=== PATIENT | female | born 1950 | race Caucasian/White ===

== ENCOUNTER 2025-02-11 13:45 | Inpatient (IN) ==
[2025-02-11] MEDS: MoRPHine SULFATE 4 MG/ML 1 ML CARP\\VIAL IV STA (14:47)
[2025-02-11] MEDS: ONDANSETRON INJ 2 MG/ML 2 ML VIAL IV STA (14:47)
--- NOTE | 2025-02-11 14:52 | XRay Report ---
Exam: Single view pelvis 2 view right hip. History: Pain post fall. Comparison:None. Findings: Slight atypical appearance of the left femoral neck. No discrete fracture. This may be positional. Mild degenerative changes lumbar spine. Transitional lumbosacral junction on the left. Absence normal cortical continuity of the subcapital right femoral neck most consistent with impaction type fracture deformity. Hip joint is intact. Impression: 1. Impaction type fracture deformity right subcapital femoral neck. CT would be helpful for further characterization. 2. Slight atypical appearance left femoral neck. Suspect chronic process. If pain at this level exist recommend dedicated left hip views. Please see above for details. Electronically signed by Jaden Mondragon 02-11-2025 2:52 PM
--- NOTE | 2025-02-11 15:11 | Emergency Department Note ---
Impression & Plan Subcapital fracture of right femur ED Provider Note CHIEF COMPLAINT: Fall 4 hours ago, right groin pain HISTORY OF PRESENT ILLNESS: Patient is a 74-year-old female with past medical history significant for hypertension, hypothyroidism, dyslipidemia, anxiety/depression who presents to the emergency department via EMS for evaluation of right hip/groin pain. Patient reports that she stood up from a barstool, her right knee twisted or buckled on her, she lost her balance and she fell backwards, landing on her buttocks, possibly more on the right side/right hip. She was not able to get up, and sat on the ground for about 20-30 minutes. Her ultimately got a rolling walker with a seat, and was able to help her get up and put her on the walker, where he was able to push her. He was able to get her home and into the house and onto the recliner, but once they are, the pain got worse and she was not able to get up. She did have Tylenol. She states the pain is in the right groin. She feels a little bit better when her right hip and knee are flexed. She did strike the back of her head slightly, but did not lose consciousness. She denies any headache, neck pain, lightheadedness dizziness, nausea or vomiting. She sustained a small skin tear to the right elbow region, otherwise denies any other injuries. She currently rates her discomfort an 8/10. REVIEW OF SYSTEMS: Review of systems as per HPI. All other systems reviewed were negative. 10 systems reviewed. PMH: External medical records are reviewed and summarized as above/below. See Problem List. SOCIAL HISTORY: Patient lives at home. PHYSICAL EXAM: Vital Signs: Reviewed Nurse's notes. GENERAL: Patient is a mildly uncomfortable 74-year-old female who is awake and alert and laying on the gurney. HEENT: Head - normocephalic and atraumatic. Pupils are equal, round, and reactive to light. Extraocular eye muscles are intact and sclera are anicteric. Ears - bilaterally patent canals with no evidence of hemotympanum. Nose - moist nasal mucosa without evidence of trauma or discharge. Mouth - moist buccal mucosa with no trauma to the teeth or signs of malocclusion. Neck: The neck is supple and there is no pain to palpation over the posterior cervical spine and no obvious step-offs or deformities. There is no JVD or tracheal deviation. Chest: There are no signs of deformities, contusions or abrasions to the chest wall. There is no obvious crepitus or paradoxical chest rise. Heart: Regular rate, and regular rhythm. Lungs: Breath sounds equal and clear to auscultation. Abdomen: Bowel sounds are present. No signs of bruising or abrasions to the abdomen. The abdomen is soft, nontender and nondistended. No guarding or rebound. Extremities: Examination of the right lower extremity does not reveal any obvious deformity. She is able to flex the hip and knee, and prefers this positioning, but there is no leg length discrepancy with the legs in extension. She is right groin tenderness to palpation, no pain over the right greater trochanter. Hip range of motion not assessed due to the nature of the injury. Bilateral lower extremities are neurovascularly intact. There is a superficial skin tear to the right elbow area. Back: The entire thoracic, lumbar, and sacral spine were palpated. No discomfort over the thoracic spine and lumbar spine. There are no obvious step- offs or deformities noted. There are no obvious signs of trauma such as contusions abrasions penetrations noted to the back. EMERGENCY DEPARTMENT COURSE: The patient was seen and assessed as above. External medical records are reviewed. She presents to the emergency department for evaluation of right hip and groin pain after a mechanical fall. She was treated with IV morphine and Zofran. X-rays of the right hip and pelvis were obtained. X-ray findings are as below, concerning for a subcapital right femoral neck fracture. Given these findings, hip fracture orders placed including EKG, chest x-ray and laboratory studies. X-ray findings reviewed with the patient, and need for inpatient care and surgical intervention discussed. Patient reviewed with ED egg caser, and consultation placed with the [facility] service for admission. Diagnostics, as interpreted by me: Laboratory studies: Moderately elevated white count 16,500, with left shift noted. H&H 13.5 and 40.1, platelet count 292,000. Coags are normal. No electrolyte imbalance, DANA or transaminitis. Urine microscopy is not concerning for infection. ECG: Normal sinus rhythm 74 bpm Cardiac monitoring: An order was placed for continuous cardiac monitoring. The monitor shows a NSR at a rate of 65 per my interpretation. Imaging studies: Right hip x-rays per my interpretation note a subcapital femoral neck fracture. Right hip CT confirms this. Chest x-ray clear, no infiltrate or consolidation. Chronic conditions affecting care: Tobacco abuse, hypertension, hypothyroidism, dyslipidemia Differential diagnosis: Hip versus pelvic fracture, femur fracture, compression fracture, sacral fracture, among others. Past Med/Surg History Problem List (Updated 02/11/25 @ 20:27 by Maria Elena Lakhani) Hyperlipidemia Subcapital fracture of right femur (Acute) Medical History Depression Anxiety Dyslipidemia Hypertension Hypothyroidism Surgical History History of hysterectomy Social History Smoking Status: Current every day smoker Tobacco Type: Cigarettes Do You Dip or Chew Tobacco: No; Hx Alcohol Use: No Hx Substance Use: No Preferred Language: Tajik Communication Ability: Effective Bindery Assistant Required: No Beliefs That Will Affect Care: None Current Living Situation: Spouse Other Information That Helps Us Care for You: No Feels Safe at Home: Yes Safety Concerns: Feels Safe At This Time Assistive Devices: Denture - Upper and Glasses Allergies Allergies Allergy/AdvReac Type Severity Reaction Status Date / Time No Known Allergies Allergy Verified 02/11/25 14:23 Home Meds Home Medications Medication Instructions Recorded Confirmed amlodipine 5 mg tablet 5 mg PO DAILY 02/11/25 02/11/25 atorvastatin 10 mg tablet 10 mg PO DAILY 02/11/25 02/11/25 citalopram 20 mg tablet 20 mg PO DAILY 02/11/25 02/11/25 levothyroxine 88 mcg capsule 88 mcg PO DAILY 02/11/25 02/11/25 losartan 100 mg tablet 100 mg PO DAILY 02/11/25 02/11/25 Results & Data (ED) Vital Signs Vital Signs - 24 hr 02/11/25 13:54 02/11/25 14:12 02/11/25 16:00 Temperature 36.6 C Temperature Source Oral Pulse Rate 71 75 Pulse Rate [Apical] 75 Pulse Rhythm Regular Pulse Rhythm [Apical] Regular Pulse Strength Normal Pulse Strength [Apical] Normal Respiratory Rate 16 19 Respiratory Effort / Characteristics Non-Labored Spontaneous Non-Labored Spontaneous Respiratory Depth Normal Normal Respiratory Pattern Regular Regular Blood Pressure 124/83 Blood Pressure [Right Arm] 139/78 Blood Pressure Mean 96 Blood Pressure Mean [Right Arm] 98 Blood Pressure Position [Right Arm] Semi-fowlers Pulse Oximetry 92 90 Oxygen Delivery Method Room Air Room Air Sepsis Recent Fever Within 48 Hours No Sepsis New/Unexplained Change in Mental Status No Sepsis Action Taken by Nursing No Action Required Home Medications Current Medication List: was personally reviewed by me Laboratory Data Attestation: I reviewed the patient's lab results. 02/11/25 14:00 02/11/25 14:00 Lab Results 02/11/25 Range/Units 14:00 WBC 16.53 H (4.8-10.8) K/ul RBC 4.26 (4.20-5.40) M/uL Hgb 13.5 (12.0-16.0) g/dL Hct 40.1 (37.0-47.0) % MCV 94.1 (80.0-100.0) fL MCH 31.7 (25.0-34.0) pg MCHC 33.7 (32.0-36.0) g/dL RDW Std Deviation 43.8 (36.4-46.3) fL RDW Coeff of Renetta 12.8 (11.5-14.5) % Plt Count 292 (130-400) K/uL MPV 9.0 L (9.4-12.4) fL Immature Gran % (Auto) 0.6 % Neut % (Auto) 83.8 % Lymph % (Auto) 9.2 % [place] % (Auto) 5.4 % Eos % (Auto) 0.5 % Baso % (Auto) 0.5 % Neut # (Auto) 13.86 H (1.40-6.50) K/uL Lymph # (Auto) 1.52 (1.20-3.40) K/uL [place] # (Auto) 0.89 H (0.11-0.59) K/uL Eos # (Auto) 0.08 (0.00-0.50) K/uL Baso # (Auto) 0.08 (0.00-0.20) K/uL Immature Gran # (Auto) 0.10 (0.01-0.20) K/uL PT 11.3 (9.0-12.0) Seconds INR 1.1 (0.9-1.1) APTT 29 (21-31) Seconds PTT Ratio 1.1 Sodium 136 (136-145) mmol/L Potassium 4.3 (3.5-5.1) mmol/L Chloride 107 (98-107) mmol/L Carbon Dioxide 23 (21-32) mmol/L Anion Gap 6 (3-11) BUN 13 (6-23) mg/dl Creatinine 0.73 (0.6-1.2) mg/dl Est Cr Clr Drug Dosing 73.0 ml/min eGFR 87.32 BUN/Creatinine Ratio 17.8 (10-20) Glucose 105 H (70-99(Fasting)) mg/dl Calcium 9.1 (8.6-10.3) mg/dl Total Bilirubin 0.4 (0.2-1.0) mg/dl AST 18 (13-39) U/L ALT 12 (7-52) U/L Alkaline Phosphatase 78 (34-104) U/L Total Protein 7.2 (6.0-8.3) gm/dl Albumin 3.9 (3.4-5.0) gm/dl Globulin 3.3 (2.5-4.0) gm/dl Albumin/Globulin Ratio 1.2 (0.9-2) Administered Medications Lactated Ringer's (Lr) 1,000 mls @ 80 mls/hr IV .[id number] [facility] Stop: 02/14/25 19:29 Last Admin: 02/11/25 19:42 Dose: 80 mls/hr Documented By: ALEX Nicotine (Nicotine 21 Mg/24 Hr Tdsy) 1 patch TD QAM CR Stop: 03/13/25 18:02 Last Admin: 02/11/25 19:44 Dose: 1 patch Documented By: ALEX Discontinued Medications Hydromorphone HCl (Hydromorphone Inj 0.5 Mg/0.5 Ml Syr) 0.5 mg IV NOW STA Stop: 02/11/25 16:16 Last Admin: 02/11/25 16:28 Dose: 0.5 mg Documented By: GEOR[place]IA Co-signed By: EITAN Morphine Sulfate (Morphine Sulfate 4 Mg/Ml 1 Ml Carp\Vial) 4 mg IV NOW STA Stop: 02/11/25 14:25 Last Admin: 02/11/25 14:47 Dose: 4 mg Documented By: ASHLEY Morphine Sulfate (Morphine Sulfate 10 Mg/Ml Carp/Vial) 6 mg IV NOW STA Stop: 02/11/25 15:41 Last Admin: 02/11/25 16:31 Dose: Not Given Documented By: EITAN Ondansetron HCl (Ondansetron Inj 2 Mg/Ml 2 Ml Vial) 4 mg IV NOW STA Stop: 02/11/25 14:25 Last Admin: 02/11/25 14:47 Dose: 4 mg Documented By: ASHLEY Imaging Data Attestation: I personally reviewed and interpreted this imaging study as follows: Radiologist's Impression: Hip/Pelvis X-Ray 02/11/25 14:23 Exam: Single view pelvis 2 view right hip. History: Pain post fall. Comparison:None. Findings: Slight atypical appearance of the left femoral neck. No discrete fracture. This may be positional. Mild degenerative changes lumbar spine. Transitional lumbosacral junction on the left. Absence normal cortical continuity of the subcapital right femoral neck most consistent with impaction type fracture deformity. Hip joint is intact. Impression: 1. Impaction type fracture deformity right subcapital femoral neck. CT would be helpful for further characterization. 2. Slight atypical appearance left femoral neck. Suspect chronic process. If pain at this level exist recommend dedicated left hip views. Please see above for details. Electronically signed by Jaden Mondragon 02-11-2025 2:[address] 02/11/25 15:11 CT right hip without contrast History: Pain/weakness Comparison: None Technique: CT performed of the extremity without IV contrast. Dose reduction techniques were achieved by using automatic exposure control and/or adjustment of mA and/or kV according to patient size and/or use of iterative reconstruction technique. Findings: Subcapital right femoral neck fracture with impaction. Avulsed bony fragments are seen inferior to the femoral head. The right hip joint is congruent. Portions visualized of the right iliac bone appear intact. Joint spaces are normally aligned. No visualized soft tissue abnormality. No aggressive osseous lesion. Impression: Right femoral subcapital neck fracture Electronically signed by Rolan Castillo 02-11-2025 4:09 PM Chest X-Ray 02/11/25 15:12 Chest radiograph, one view History: Preop Comparison: None Findings: Single AP view of the chest performed. No focal consolidation or pleural effusion. No pneumothorax. The cardiomediastinal silhouette is within normal limits. Normal pulmonary vascularity. No evidence for lymphadenopathy. No visualized bony or soft tissue abnormality. Impression: Normal chest radiograph Electronically signed by Rolan Castillo 02-11-2025 4:09 PM Discharge Plan Visit Data Chief Complaint: Fall Stated Complaint: FALL ED Provider: Michael Case ED Midlevel Provider: Maria Elena Lakhani Discharge Problem: Subcapital fracture of right femur Patient Disposition: Admitted As Inpatient Condition: Good Discharge Instructions Interventions: ED Discharge Assessment Last Done: 02/11/25 17:46
[2025-02-11 15:30] LABS: Hematocrit (blood only) 40.1 % (37.0-47.0); Hemoglobin 13.5 g/dL (12.0-16.0); Immature Granulocytes # (auto) 0.10 K/uL (0.01-0.20); Immature Granulocytes % (auto) 0.6 %; Mean Corpuscular Hemoglobin 31.7 pg (25.0-34.0); Mean Corpuscular Volume 94.1 fL (80.0-100.0); Platelet Count 292 K/uL (130-400); RDW Standard Deviation 43.8 fL (36.4-46.3); Red Blood Count 4.26 M/uL (4.20-5.40); White Blood Count 16.53 K/ul (4.8-10.8)
[2025-02-11 15:38] LABS: Alanine Aminotransferase 12.0 U/L (7-52); Albumin Globulin Ratio 1.2 (0.9-2); Albumin Level 3.9 gm/dl (3.4-5.0); Alkaline Phosphatase 78.0 U/L (34-104); Anion Gap 6.0 (3-11); Bilirubin,Total 0.4 mg/dl (0.2-1.0); Blood Urea Nitrogen 13.0 mg/dl (6-23); Calcium 9.1 mg/dl (8.6-10.3); Carbon Dioxide 23.0 mmol/L (21-32); Chloride 107.0 mmol/L (98-107); Creatinine Clr Calc Pharmacy 73.0 ml/min; Globulin 3.3 gm/dl (2.5-4.0); Glucose 105.0 mg/dl (70-99(Fasting)); Potassium 4.3 mmol/L (3.5-5.1); Sodium 136.0 mmol/L (136-145); Total Protein 7.2 gm/dl (6.0-8.3)
--- NOTE | 2025-02-11 15:42 | Emergency Department Note ---
ED Visit Note I was consulted by the Advanced Practice Provider. I personally made/approved the management plan and take responsibility for the patient management. This includes the aspects of: -History/Physical -MDM
[2025-02-11 16:02] LABS: INR 1.1 (0.9-1.1); Partial Thromboplastin Time 29 Seconds (21-31); Prothrombin Time 11.3 Seconds (9.0-12.0)
--- NOTE | 2025-02-11 16:09 | XRay Report ---
Chest radiograph, one view History: Preop Comparison: None Findings: Single AP view of the chest performed. No focal consolidation or pleural effusion. No pneumothorax. The cardiomediastinal silhouette is within normal limits. Normal pulmonary vascularity. No evidence for lymphadenopathy. No visualized bony or soft tissue abnormality. Impression: Normal chest radiograph Electronically signed by Rolan Castillo 02-11-2025 4:09 PM
--- NOTE | 2025-02-11 16:09 | CT Scan Report ---
CT right hip without contrast History: Pain/weakness Comparison: None Technique: CT performed of the extremity without IV contrast. Dose reduction techniques were achieved by using automatic exposure control and/or adjustment of mA and/or kV according to patient size and/or use of iterative reconstruction technique. Findings: Subcapital right femoral neck fracture with impaction. Avulsed bony fragments are seen inferior to the femoral head. The right hip joint is congruent. Portions visualized of the right iliac bone appear intact. Joint spaces are normally aligned. No visualized soft tissue abnormality. No aggressive osseous lesion. Impression: Right femoral subcapital neck fracture Electronically signed by Rolan Castillo 02-11-2025 4:09 PM
[2025-02-11] MEDS: HYDROmorphone INJ 0.5 MG/0.5 ML SYR IV STA (16:28)
[2025-02-11] MEDS: MoRPHine SULFATE 10 MG/ML CARP/VIAL IV STA (16:31)
[2025-02-11 17:51] LABS: Appearance Urine Clear (Clear); Bacteria Urine Automated None Seen (None Seen); Epithelial Cell Urine Auto 0-2 /hpf (0-2); Glucose Urine UA Negative (Negative); WBC Urine Automated 0-5 /hpf (0-5)
[2025-02-11] MEDS ORDERED: ONDANSETRON INJ 2 MG/ML 2 ML VIAL IV PRN (18:06)
[2025-02-11] MEDS ORDERED: POLYETHYLENE (MIRALAX) 17 GM PACK PO PRN (18:06)
[2025-02-11] MEDS ORDERED: MAGNESIUM HYDROXIDE SUSP 30 ML UDC PO PRN (18:06)
[2025-02-11] MEDS ORDERED: ALUMINUM/MAGNESIUM SUSP 30 ML UDC PO PRN (18:06)
[2025-02-11] MEDS ORDERED: HYDROmorphone INJ 0.5 MG/0.5 ML SYR IV PRN (18:06)
[2025-02-11] MEDS ORDERED: HYDROmorphone INJ 0.5 MG/0.5 ML SYR IM PRN (18:06)
--- NOTE | 2025-02-11 18:59 | History & Physical Report ---
Date of Service February 11, 2025 Assessment & Plan (1) Subcapital fracture of right femur: (2) Hyperlipidemia: (3) Anxiety: (4) Depression: Plan 74 year old female with PMH significant for HTN, HLD, nicotine dependency, hypothyroidism, and depression/anxiety presents s/p mechanical fall with c/o right groin pain arriving via EMS to [facility]. ED course revealed 2V right hip XRAY with impaction type fracture deformity right subcapital femoral neck/slight atypical appearance of left femoral neck-->she denies pain in left hip as she states she fractured the left hip years ago where she did not seek immediate treatment post a fall and finally had an xray that revealed a fracture that had already healed. Right hip CT with right femoral subcapital neck fracture. CBC with leukocytosis at 16.53 with negative ROS. Chest xray with no acute findings. Reports SPO2 in high 80s post Morphine dosing she received in the ED. Placed on nasal cannula with favorable O2 saturations in the mid 90s. Tolerated Dilaudid 0.5mg IV times one ordered in ED without desaturation. ##Subcapital fracture of right femur-s/p ground level/mechanical fall with noted R hip CT revealing subcapital right femoral neck fracture with impaction -admit to med/surg -regular diet this evening, NPO after MN -orthopedic consult -pain control-->>IV Tylenol PRN, IV Dilaudid PRN, Oxycodone po PRN -LR 80m/hr ##leukocytosis in setting of traumatic fall, patient with daily nicotine use -ROS of negative -CXR without acute findings -collect UA -trend CBC ##HTN -hold home amlodipine, losartan in setting of possible surgery ##HLD -on home statin, hold for now ##Depression/anxiety -Celexa 20mg po daily ##hypothroidism -check TSH -levothyroxine 88mcg po daily ##nicotine dependency -nicotine patch DVT prophylaxis: defer chemical therapy d/t possible surgical intervention, SCDs Diet: Regular, NPO after MN Disposition: Full admit CODE STATUS: Full code Admission and Anticipated Discharge Date Admission Date: February 11, 2025 History of Present Illness Chief Complaint: Fall with right groin pain Primary Care Provider: Janee Guerrero Patient is a 74-year-old female with past medical history significant for hypertension, nicotine dependency, hypothyroidism, hyperlipidemia, and anxiety/depression that presented to the [facility] emergency department by ambulance status post mechanical/ground-level fall. States she was playing slot machines at local [employer] and was sitting on a barstool when she went to get up where her right knee twisted up and buckled on her subsequently causing her to fall backwards. She landed on her buttocks and had pain immediately in her right groin. Her had to get a rolling walker to take her to their private vehicle to get home. She then started having worsening right groin pain as she was sitting in her recliner at home. She medicated with Tylenol and this minimally helped her pain. She had no presyncope, syncope, visual disturbance, dizziness prior to fall. No complaints of headache, neck pain, cervical/thoracic/lumbar pain post fall. She is currently having pain in her right groin area rating pain 5/10. She does smoke cigarettes 1PPD, does not drink ETOH and has not drank today. After lengthy discussion with patient she elects to be a full code during her hospitalization. Allergies Allergy/AdvReac Type Severity Reaction Status Date / Time No Known Allergies Allergy Verified 02/11/25 14:23 Home Medications Medication Instructions Recorded Confirmed Type amlodipine 5 mg tablet 5 mg PO DAILY 02/11/25 02/11/25 History atorvastatin 10 mg tablet 10 mg PO DAILY 02/11/25 02/11/25 History citalopram 20 mg tablet 20 mg PO DAILY 02/11/25 02/11/25 History levothyroxine 88 mcg capsule 88 mcg PO DAILY 02/11/25 02/11/25 History losartan 100 mg tablet 100 mg PO DAILY 02/11/25 02/11/25 History Past Med/Surg History Problem List (Updated 02/11/25 @ 19:14 by SARAH Gonzalez) Depression Anxiety Hyperlipidemia Subcapital fracture of right femur Medical History (Updated 02/11/25 @ 19:14 by SARAH Gonzalez) Dyslipidemia Hypertension Hypothyroidism Surgical History (Updated 02/11/25 @ 15:20 by Maria Elena Lakhani) History of hysterectomy Social History Smoking Status: Current every day smoker Tobacco Type: Cigarettes Do You Dip or Chew Tobacco: No; Hx Alcohol Use: No Hx Substance Use: No Preferred Language: Georgian Communication Ability: Effective Photographic Equipment Assembler Required: No Beliefs That Will Affect Care: None Current Living Situation: Spouse Other Information That Helps Us Care for You: No Feels Safe at Home: Yes Safety Concerns: Feels Safe At This Time Assistive Devices: Denture - Upper and Glasses Review of Systems Review of Systems: All systems reviewed & are unremarkable except as noted in Subjective Physical Exam Physical Exam: GENERAL APPEARANCE: A&O. Lying in bed. Grimacing. NAD. SKIN: Normal color without rashes or lesions. Normal turgor. HEENT: Head AT/NC. Buccal mucosa is moist and pink. NECK: No jugular venous distention. No thyroid enlargement. There is no lymphadenopathy. HEART: RRR without m/g/r. LUNGS: Normal inspiratory effort. CTA without w/r/r. ABDOMEN: No guarding or rigidity. Normoactive BS in all four quadrants. Abdomen soft and NT. MSK: No bony gross/deformities throughout. ROM intact. EXTREMITIES: No edema, No peripheral cyanosis. No leg shortening. TTP of right hip, right groin. Neuro: CN 2-12 grossly intact. No focal neuro deficits PSYCHIATRIC: Normal affect. Eye contact is good. Speech is normal rate and content. Responses are appropriate. Results & Data Results & Data Vital Signs (Past 12 Hours) Vital Signs Temp Pulse Pulse Pulse Resp BP BP 02/11/25 18:17 02/11/25 18:06 36.8 C 73 18 155/76 H 02/11/25 17:46 02/11/25 17:40 77 18 137/95 02/11/25 16:32 02/11/25 16:00 75 19 139/78 02/11/25 14:12 75 02/11/25 13:54 36.6 C 71 16 124/83 Pulse Ox O2 Del Method O2 Flow Rate 02/11/25 18:17 Nasal Cannula 2 02/11/25 18:06 94 Nasal Cannula 2 02/11/25 17:46 Nasal Cannula 2 02/11/25 17:40 94 Nasal Cannula 2 02/11/25 16:32 89 L Room Air 0 02/11/25 16:00 90 Room Air 02/11/25 14:12 02/11/25 13:54 92 Room Air PG Care Time/CCT Total # of Minutes Spent Total Time Spent with Patient: Total time spent is greater than 50% in coordination of care (as documented) at patient's floor/unit and/or counseling patient: Coding Level of Care Code 39404 INT INP/OBS CARE MIN Diagnoses Subcapital fracture of right femur S72.011A Hyperlipidemia E78.5 Anxiety F41.9 Depression F32.A
[2025-02-11] MEDS: LACTATED RINGER'S 1,000 ML IV SCH (19:42)
[2025-02-11] MEDS: NICOTINE 21 MG/24 HR TDSY TD SCH (19:44)
--- NOTE | 2025-02-11 21:53 | Electrocardiogram Report ---
Test Reason : Blood Pressure : */* mmHG Vent. Rate : 74 BPM Atrial Rate : 74 BPM P-R Int : 174 ms QRS Dur : 80 ms QT Int : 428 ms P-R-T Axes : 40 21 49 degrees QTcB Int : 475 ms Normal sinus rhythm Normal ECG No previous ECGs available Confirmed by Karsten Brand ([id number]) on 02/11/2025 9:52:57 PM Referred By: REFERRED SELF Confirmed By: Karsten Brand
[2025-02-11] MEDS: MELATONIN 3 MG TAB PO PRN (22:19)
[2025-02-11 22:40] LABS: Appearance Urine Turbid (Clear); Cast Urine Automated 0-2 /lpf (0-2); Glucose Urine UA Negative (Negative); RBC Urine Automated >20 /hpf (0-2)
[2025-02-11 22:49] LABS: Bacteria Urine Automated 3+ (None Seen)
[2025-02-12] MEDS: ACETAMINOPHEN 1,000 MG/100 ML VIAL IV PRN (00:24)
[2025-02-12] MEDS: LEVOTHYROXINE SODIUM 88 MCG TABLET PO SCH (05:43)
[2025-02-12 08:09] LABS: Hematocrit (blood only) 37.4 % (37.0-47.0); Hemoglobin 12.5 g/dL (12.0-16.0); Immature Granulocytes # (auto) 0.04 K/uL (0.01-0.20); Immature Granulocytes % (auto) 0.4 %; Mean Corpuscular Hemoglobin 31.3 pg (25.0-34.0); Mean Corpuscular Volume 93.7 fL (80.0-100.0); Platelet Count 245 K/uL (130-400); RDW Standard Deviation 44.3 fL (36.4-46.3); Red Blood Count 3.99 M/uL (4.20-5.40); White Blood Count 9.96 K/ul (4.8-10.8)
--- NOTE | 2025-02-12 08:18 | Orthopedic Consultation ---
Date of Consultation February 12, 2025 Assessment & Plan (1) Subcapital fracture of right femur: Patient is a 74 year old female with right subcapital fracture of right femur. Proper management of this would be a right total hip arthroplasty. Discussed the risks and benefits of this procedure with the patient and she has agreed to proceed with surgical intervention. Written consent was obtained and placed in patient chart. She is scheduled to undergo this today with Dr Shepherd. -Post operative course discussed with patient: She will be weightbearing as tolerated after surgery with assistance of a walker. She will begin physical therapy POD1. Posterior hip precautions were review with her. She will need an abduction pillow for 8 weeks after surgery. Discussed with her risk of wound problems and healing with her tobacco use. She is aware and has agreed to accept these risks. She will be on a blood thinner after surgery to prevent blood clots. She will see us in the office for a 2 week post operative appointment. She likely would benefit from setting up home health and home PT for the first two weeks after her surgery. She lives near [place], and we discussed that she could do her outpatient PT closer to home. -Keep NPO -Hold anticoagulants -Infection prophylaxis: 2grams Cefazolin ordered pre op -1 gram TXA preop and intra-op was ordered -Additional pre-op orders placed including celebrex 200mg, Decadron, and orho joint mix -Abduction pillow to OR -Type and screen ordered -Continue IV LR fluids -Cath already placed -Continue with pain control All of her questions and concerns were address. Will discuss with Dr Shepherd. Supervising Physician Co-Signing Physician Notes I saw and examined the patient, interpreted her x-rays and CT scan, reviewed her chart, formulated the plan, and performed the substantive portion of the visit. Agree with above note. Given her age and nicotine dependence, as well as the amount of collapse and loss of the medial hinge, I think a percutaneous pinning has a high likelihood of failure. I think her best surgical treatment options is a total hip replacement. Reviewed risks/benefits, alternatives and expected outcomes. Informed consent signed. Surgical site marked. Proceed to OR today for BEATRICE. History of Present Illness Reason for Consultation: right hip fracture Attending Physician: Nicola Jovel History of Present Illness 74 year old female with PMH significant for HTN, HLD, nicotine dependency, hypothyroidism, and depression/anxiety presents s/p mechanical fall with c/o right groin pain arriving via EMS to [facility]. ED course revealed 2V right hip XRAY with impaction type fracture deformity right subcapital femoral neck/slight atypical appearance of left femoral neck-->she denies pain in left hip as she states she fractured the left hip years ago where she did not seek immediate treatment post a fall and finally had an xray that revealed a fracture that had already healed. Right hip CT with right femoral subcapital neck fracture. She reports pain is controlled with medications, it's about 5-6/10 right now. Denies any n/t. Says she has knee pain but this is a chronic issue from a torn meniscus. Not complaining of any worsening knee pain and denies falling onto her knee. Not taking a blood thinner or asa, no metal allergies. Allergies Allergy/AdvReac Type Severity Reaction Status Date / Time No Known Allergies Allergy Verified 02/11/25 14:23 Home Medications Medication Instructions Recorded Confirmed Type amlodipine 5 mg tablet 5 mg PO DAILY 02/11/25 02/11/25 History atorvastatin 10 mg tablet 10 mg PO DAILY 02/11/25 02/11/25 History citalopram 20 mg tablet 20 mg PO DAILY 02/11/25 02/11/25 History levothyroxine 88 mcg capsule 88 mcg PO DAILY 02/11/25 02/11/25 History losartan 100 mg tablet 100 mg PO DAILY 02/11/25 02/11/25 History Patient History Medical History Depression Anxiety Dyslipidemia Hypertension Hypothyroidism Surgical History History of hysterectomy Social History Smoking Status: Current every day smoker Tobacco Type: Cigarettes Do You Dip or Chew Tobacco: No; Hx Alcohol Use: No Hx Substance Use: No Preferred Language: Northern Irish Communication Ability: Effective Investment Banker Required: No Beliefs That Will Affect Care: None Current Living Situation: Spouse Other Information That Helps Us Care for You: No Feels Safe at Home: Yes Safety Concerns: Feels Safe At This Time Assistive Devices: Denture - Upper and Glasses Physical Exam Physical Exam: General: Elaina is lying in hospital bed. Appearing to be somewhat uncomfortable, but in no acute distress. Right lower extremity: Shortened and slightly externally rotated. There are no breaks in the skin or ecchymosis. Thigh is soft and compressible. There is no pain palpating her knee including the medial and lateral joint line nor the patella. She is able to freely wiggle all of her toes and DF/PF her ankle including against some light resistance. 2+ dorsal pedial pulse present, sensation in tact distally to light touch. Results & Data Vital Signs (Past 12 Hours) Vital Signs Temp Pulse Resp BP Pulse Ox O2 Del Method O2 Flow Rate 02/11/25 23:28 36.8 C 67 16 152/84 H 94 Nasal Cannula 2 Diagnostic Findings Exam: Single view pelvis 2 view right hip. History: Pain post fall. Comparison:None. Findings: Slight atypical appearance of the left femoral neck. No discrete fracture. This may be positional. Mild degenerative changes lumbar spine. Transitional lumbosacral junction on the left. Absence normal cortical continuity of the subcapital right femoral neck most consistent with impaction type fracture deformity. Hip joint is intact. Impression: 1. Impaction type fracture deformity right subcapital femoral neck. CT would be helpful for further characterization. 2. Slight atypical appearance left femoral neck. Suspect chronic process. If pain at this level exist recommend dedicated left hip views. Please see above for details. Electronically signed by Jaden Mondragon 02-11-2025 2:[address] right hip without contrast History: Pain/weakness Comparison: None Technique: CT performed of the extremity without IV contrast. Dose reduction techniques were achieved by using automatic exposure control and/or adjustment of mA and/or kV according to patient size and/or use of iterative reconstruction technique. Findings: Subcapital right femoral neck fracture with impaction. Avulsed bony fragments are seen inferior to the femoral head. The right hip joint is congruent. Portions visualized of the right iliac bone appear intact. Joint spaces are normally aligned. No visualized soft tissue abnormality. No aggressive osseous lesion. Impression: Right femoral subcapital neck fracture Electronically signed by Rolan Castillo 02-11-2025 4:09 PM
[2025-02-12 08:25] LABS: Anion Gap 5.0 (3-11); Blood Urea Nitrogen 13.0 mg/dl (6-23); Calcium 8.8 mg/dl (8.6-10.3); Carbon Dioxide 25.0 mmol/L (21-32); Chloride 105.0 mmol/L (98-107); Creatinine Clr Calc Pharmacy 83.3 ml/min; Glucose 105.0 mg/dl (70-99(Fasting)); Potassium 4.0 mmol/L (3.5-5.1); Sodium 135.0 mmol/L (136-145)
[2025-02-12 08:40] LABS: Thyroid Stimulating Hormone 4.045 uIu/ml (0.300-4.500)
[2025-02-12] MEDS: CITALOPRAM 20 MG TAB PO SCH (08:51)
[2025-02-12] MEDS: REMOVE NICODERM PATCH SCH (08:51)
[2025-02-12] MEDS: CeleBREX 200 MG CAP PO SCH ×2 (13:29→21:23)
[2025-02-12] MEDS ORDERED: ONDANSETRON INJ 2 MG/ML 2 ML VIAL IV PRN ×2 (14:48→17:30)
[2025-02-12] MEDS ORDERED: ATROPINE SULFATE 0.1 MG/ML 10ML SYR IV PRN (14:48)
--- NOTE | 2025-02-12 14:48 | Anesthesiology Consultation ---
Date of Service February 12, 2025 Assessment & Plan Chart Review Chart Review: Acceptable Risk for Surgery Consults Requested none ASA ASA2 Proposed Anesthesia Anesthesia Type: General Risk / Benefits Reviewed With: PT / POA / Parent / Guardian, Accepts Plan and Informed Consent Obtained History Surgery Operation Date: 02/12/25 07:50 Proposed Procedures p Right Total Hip Arthroplasty\ - Jeet Shepherd MD Height/Weight Height: 5 ft 4 in Weight: 83.9 kg Allergies Allergy/AdvReac Type Severity Reaction Status Date / Time No Known Allergies Allergy Verified 02/12/25 13:31 Medications Home Medications Medication Instructions Recorded Confirmed Last Taken amlodipine 5 mg tablet 5 mg PO DAILY 02/11/25 02/11/25 Unknown atorvastatin 10 mg tablet 10 mg PO DAILY 02/11/25 02/11/25 Unknown citalopram 20 mg tablet 20 mg PO DAILY 02/11/25 02/11/25 Unknown levothyroxine 88 mcg capsule 88 mcg PO DAILY 02/11/25 02/11/25 Unknown losartan 100 mg tablet 100 mg PO DAILY 02/11/25 02/11/25 Unknown Active Medications Generic Name Dose Route Start Last Admin Trade Name Freq PRN Reason Stop Dose Admin Citalopram Hydrobromide 20 mg 02/12/25 09:00 02/12/25 08:51 Citalopram 20 Mg Tab PO 03/14/25 08:59 20 mg QAM CR Administration Acetaminophen 1,000 mg in 100 mls @ 400 mls/hr 02/11/25 18:06 02/12/25 09:15 Ofirmev IV 02/14/25 18:05 Infused Q8H PRN Infusion Pain Lactated Ringer's 1,000 mls @ 80 mls/hr 02/11/25 19:30 02/12/25 08:20 Lr IV 02/14/25 19:29 80 mls/hr .[id number] CR Administration Levothyroxine Sodium 88 mcg 02/12/25 06:30 02/12/25 05:43 Levothyroxine Sodium 88 Mcg Tablet PO 03/14/25 06:29 88 mcg DAILYBB CR Administration Melatonin 3 mg 02/11/25 18:06 02/11/25 22:19 Melatonin 3 Mg Tab PO 03/13/25 18:05 3 mg HS PRN Administration Insomnia Miscellaneous 1 each 02/12/25 08:59 11/17/25 08:51 Remove Nicoderm Patch N/A 03/14/25 08:58 1 each DAILY@0859 CR Administration Nicotine 1 patch 02/11/25 18:03 02/12/25 08:50 Nicotine 21 Mg/24 Hr Tdsy TD 03/13/25 18:02 1 patch QAM CR Administration Oxycodone HCl 5 mg 02/11/25 19:20 02/12/25 08:51 Oxycodone Hcl Ir 5 Mg Tab (Immediate Release) PO 02/25/25 19:19 5 mg Q4H PRN Administration Pain NPO Date Last Intake of Fluids: 02/12/25 Time Last Intake of Fluids: 08:00 Last Intake of Fluids Comment: sip of water Date Last Intake of Solids: 02/11/25 Time Last Intake of Solids: 12:00 Past Medical History Medical History Smoker Depression Anxiety Dyslipidemia Hypertension Hypothyroidism Past Surgical History Surgical History (Updated 02/12/25 @ 13:32 by Torrie Rehman RN) History of wisdom tooth extraction History of melanoma excision left shoulder History of hysterectomy Social History Smoking Status: Current every day smoker Do You Dip or Chew Tobacco: No Hx Alcohol Use: No Hx Substance Use: No Physical Exam Vital Signs Last Vital Signs Temp 36.8 C 02/12/25 13:26 Pulse 77 02/12/25 13:26 Resp 20 02/12/25 13:26 BP 153/83 H 02/12/25 13:26 Pulse Ox 94 02/12/25 13:26 O2 Del Method Room Air 02/12/25 13:26 O2 Flow Rate 2 02/12/25 08:04 Constitutional no acute distress ENMT Mouth: + dentures and + poor dentition Thyromental Distance: < 3.5 Finger Breadths Mallampati Class: II Neck normal visual inspection Respiratory normal respiratory effort Cardiovascular Rate/Rhythm: regular rate Musculoskeletal Spine: normal cervical ROM Neurologic moves all extremities Psychiatric Orientation: alert and oriented x 3 Testing Laboratory Results 02/12/25 07:39 02/12/25 07:39 PT 11.3 Seconds (9.0-12.0) 02/11/25 14:00 INR 1.1 (0.9-1.1) 02/11/25 14:00 APTT 29 Seconds (21-31) 02/11/25 14:00 Urine Color Dark Yellow 02/11/25 21:55 Urine Appearance Turbid (Clear) A 02/11/25 21:55 Urine pH 5.5 (4.5-7.5) 02/11/25 21:55 Ur Specific [place] 1.029 (1.000-1.030) 02/11/25 21:55 Urine Protein Trace (Negative) H 02/11/25 21:55 Urine Glucose (UA) Negative (Negative) 02/11/25 21: Urine Ketones Trace (Negative) H 02/11/25 21:55 Urine Nitrite Negative (Negative) 02/11/25 21:55 Ur Leukocyte Esterase Trace (Negative) H 02/11/25 21:55 Urine WBC (Auto) 11-20 /hpf (0-5) H 02/11/25 21:55 Urine RBC (Auto) >20 /hpf (0-2) H 02/11/25 21:55 U Hyaline Cast (Auto) 0-2 /lpf (0-2) 02/11/25 21:55 U Epithel Cells (Auto) 3-5 /hpf (0-2) H 02/11/25 21:55 Urine Bacteria (Auto) 3+ (None Seen) H 02/11/25 21:55 Blood Type AB Positive 02/12/25 08:41 Antibody Screen NEGATIVE 02/12/25 08:41
[2025-02-12] MEDS ORDERED: ROCURONIUM BROMIDE 10 MG/ML 5 ML VIAL IV ONE (15:23)
[2025-02-12] MEDS ORDERED: DEXAMETHASONE SOD INJ 4 MG/ML VIAL ONE (15:23)
[2025-02-12] MEDS ORDERED: GLYCOPYRROLATE 0.2 MG/ML VIAL ONE (15:23)
[2025-02-12] MEDS ORDERED: PROPOFOL IV EMULSION 10 MG/ML 20 ML VIAL IV ONE (15:23)
[2025-02-12] MEDS ORDERED: ONDANSETRON INJ 2 MG/ML 2 ML VIAL ONE (15:23)
[2025-02-12] MEDS ORDERED: LIDOCAINE 2% 2 ML VIAL/AMP(20MG/ML) INFIL ONE (15:23)
[2025-02-12] MEDS ORDERED: MIDAZOLAM HCL 1 MG/ML 2ML VIAL ONE (15:24)
[2025-02-12] MEDS ORDERED: SUGAMMADEX SODIUM 200 MG/2 ML VIAL IV ONE (15:26)
[2025-02-12] MEDS: TRANEXAMIC ACID / 0.7% NACL 1,000 MG/100 ML BAG IV SCH ×2 (15:49→16:13)
[2025-02-12] MEDS: ROPIVACAINE 0.5% HCL/PF 246 MG, Ketorolac (*for OR use only*) 30 MG, EPINEPHrine 30MG/3... INFIL SCH (16:24)
[2025-02-12] MEDS: ORTHO JOINT ANESTHETIC ONE (16:24)
--- NOTE | 2025-02-12 17:25 | Operative Report ---
Post Operative Report Pre & Post Diagnosis Operation Date: 02/12/25 07:50 Pre-Op Diagnosis: Subcapital Fracture of Right Femur Post-Op Diagnosis: Subcapital Fracture of Right Femur I identified the patient and participated in the time-out.: Yes Procedure Operation Date: 02/12/25 07:50 Actual Procedures p Right Total Hip Arthroplasty(Right) - Jeet Shepherd MD Surgeon Jeet Shepherd MD Senior Software Tester NENA Dodge PA-C. No resident or fellow was available to assist. Estimated Blood Loss 100 Findings Consistent with Post-Op Diagnosis Specimens Right femoral head Anesthesia Type General Complications none Disposition Disposition: Recovery Room Indications 74-year-old female, fell yesterday onto her buttocks and experienced immediate onset of right hip pain and inability to walk. She was brought to the emergency room yesterday where x-rays demonstrated a subcapital femoral neck fracture with impaction. She is a chronic nicotine user. I had a long discussion with her about her diagnosis and treatment options. Total hip replacement was recommended as the best treatment to allow her to regain the ability to ambulate and the best possible long-term function. I reviewed the risks and benefits of surgery, alternatives to surgery, and expected outcomes. After reviewing all of her options she elected proceed with surgery. All questions were answered. Informed consent was signed. Description of Procedure Patient was identified in the preoperative holding area where the surgical site, right hip, was marked. The patient was brought back to the main operating room, moved onto the operating room table, and general anesthesia was administered. She was then carefully moved into the lateral decubitus position. Axillary roll was placed. All bony prominences were padded. Perioperative antibiotics and tranexamic acid 1 gram IV were administered. The operative extremity was prepped and draped in the normal sterile fashion. Prior to incision a multidisciplinary timeout was called. All in the room were in agreement. We began by making an incision for a posterior approach to the hip. We dissected down through subcutaneous tissues to the level of the fascia. The fascia was incised in line with the incision. Charnley bow was placed. Fatty tissue was reflected posteriorly off the back of the greater trochanter to expose the piriformis and short external rotators of the hip. Quadratus femoris was taken off the femur subperiosteally. The piriformis and short external rotators were dissected off the posterior aspect of the hip. A box cut was made in the capsule. Inferior hip capsule was released off the femur. The leg was internally rotated to expose the fractured femoral neck. The angle cutting guide was placed and the femoral neck was marked at the appropriate level. A saw was used to make a femoral neck osteotomy. The fractured femoral neck was removed. The acetabulum was then exposed, and the fractured femoral head was removed with a corkscrew. Next, the labrum was sharply excised. Contents of the cotyloid fossa were removed with electrocautery. We then began reaming with a 46 diameter hemispherical reamer. We reamed up by [address] the way up to a size 52 mm cup. This gave us good bleeding cancellus bone circumferentially. The acetabulum was then irrigated out and dried. The real [place] Gription cup was then impacted down into position with 40 degrees of lateral opening and 20 degrees of anteversion. A single cancellous bone screw was placed up into the ilium. Excellent fixation was obtained. A metal liner for a dual mobility acetabular component was then impacted into the shell. We checked that the Cassidy taper had engaged which was confirmed. Next we turned our attention to the femur. The lateral neck was removed with a box osteotome. Intramedullary guide was used to establish the intramedullary canal. We then broached all the way up to a size 7. We began trialing with a standard offset neck and a +5 head. Hip was reduced. Leg lengths were symmetric. The hip was stable in extension and external rotation, and stable in the sleeper position. At 90 degrees of hip flexion the hip could be internally rotated 80 degrees before levering out of the cup. I was very happy with the stability exam. Therefore the hip was dislocated and the femoral trial was removed. The femoral canal was irrigated and dried. The real Actis femoral stem was opened up. This was impacted down into position. The dual mobility femoral head was opened up, assembled on the back table, and gently impacted down onto the trunnion. The hip was atraumatically reduced. Another 1 gram of IV tranexamic acid was started prior to closure. The wound was irrigated out with sterile Betadine solution. The periarticular injection cocktail was then placed. The short external rotators, piriformis, and posterior capsule were repaired through drill holes in the greater trochanter using #2 Vicryl. The fascia was run with a looped #1 PDS. The subcutaneous layer was closed with #1 PDS. The dermal layer was closed with 2-0 Vicryl. Zip line was used for the skin followed by a Silverlon dressing. A compressive dressing was then placed. The patient was then rolled supine. Leg lengths were rechecked and were symmetric. An abduction pillow was placed. Sedation was lifted and the patient was transferred to the recovery room in stable condition. Summary of implants: Depuy emphasis acetabular Shell Sector Cup, 52 mm outer diameter [place] Cancellous bone screw, 6.5 x 40 mm 42 x 22 emphasis dual mobility liner DePuy Actis collared cementless Femoral stem, 12/14 taper, size 7 standard offset 28 mm ceramic femoral head with +5 offset Emphasis 42 x 28 mobile-bearing AOX polyethylene head Postoperative course: Patient will be readmitted to the internal medicine service from the recovery room. Patient will be weightbearing as tolerated with posterior hip precautions. Aspirin for DVT prophylaxis. Patient may be discharged home tomorrow if she passes physical therapy. I attest to the content of the Intraoperative Record and any orders documented therein. Any exceptions are noted below.
--- NOTE | 2025-02-12 17:27 | Operative Report ---
Post Operative Report Pre & Post Diagnosis Operation Date: 02/12/25 07:50 Pre-Op Diagnosis: Subcapital Fracture of Right Femur Post-Op Diagnosis: Subcapital Fracture of Right Femur I identified the patient and participated in the time-out.: Yes Procedure Operation Date: 02/12/25 07:50 Actual Procedures p Right Total Hip Arthroplasty(Right) - Jeet Shepherd MD Surgeon Jeet Shepherd MD Painter Spray NENA Dodge PA-C. No resident or fellow was available to assist. Estimated Blood Loss 100 Findings Consistent with Post-Op Diagnosis Specimens femoral head Description of Procedure I was present during the entire case assisting with positioning, prepping, draping, wound retraction, wound closure and dressing application. No fellow present. Please see Dr. Shepherd operative note for specifics of the case. I attest to the content of the Intraoperative Record and any orders documented therein. Any exceptions are noted below.
[2025-02-12] MEDS ORDERED: METOCLOPRAMIDE HCL INJ 5 MG/ML 2 ML VIAL IV PRN (17:30)
[2025-02-12] MEDS ORDERED: diphenhydrAMINE 50 MG/ML VIAL IV PRN (17:30)
[2025-02-12] MEDS ORDERED: NALOXONE HCL 0.4 MG/1 ML VIAL/CARP IV PRN (17:30)
[2025-02-12] MEDS ORDERED: MAGNESIUM HYDROXIDE SUSP 30 ML UDC PO PRN (17:30)
[2025-02-12] MEDS: HYDROmorphone INJ 0.5 MG/0.5 ML SYR IV STA (17:52)
--- NOTE | 2025-02-12 18:10 | Anesthesiology Progress Note ---
Date of Service February 12, 2025 Anesthesia Post Procedure Vital Signs Vital Signs: Temp Pulse Pulse Resp BP BP Pulse Ox 02/12/25 18:05 70 16 121/82 99 02/12/25 17:55 73 16 155/80 H 99 02/12/25 17:45 75 18 159/88 H 97 02/12/25 17:35 77 16 152/83 H 98 02/12/25 17:28 36.1 C L 82 18 163/93 H 99 02/12/25 13:26 36.8 C 77 20 153/83 H 94 02/12/25 08:04 36.4 C L 72 20 170/89 H 96 02/12/25 07:45 02/11/25 23:28 36.8 C 67 16 152/84 H 94 02/11/25 19:45 02/11/25 18:17 O2 Del Method O2 Flow Rate 02/12/25 18:05 Oxymask 4 02/12/25 17:55 Oxymask 4 02/12/25 17:45 Oxymask 4 02/12/25 17:35 Oxymask 4 02/12/25 17:28 Oxymask 6 02/12/25 13:26 Room Air 02/12/25 08:04 Nasal Cannula 2 02/12/25 07:45 Nasal Cannula 2 02/11/25 23:28 Nasal Cannula 2 02/11/25 19:45 Nasal Cannula 2 02/11/25 18:17 Nasal Cannula 2 Pain Intensity Right Hip: Pain Intensity: 6 Transfer of Care Handoff Completed per policy Notes Mental Status: alert / awake / arousable and participated in evaluation Patient Amnestic to Procedure: Yes Nausea / Vomiting: adequately controlled Pain: adequately controlled Airway Patency, RR, SpO2: stable & adequate BP & HR: stable & adequate Hydration State: stable & adequate Anesthetic Complications: no major complications apparent and Pt Satisfied with anesthetic care
--- NOTE | 2025-02-12 18:57 | XRay Report ---
One view of the pelvis is submitted for review. Findings: No fracture is seen. There is a right hip total arthroplasty. No other osseous abnormality is identified. There are no radiopaque foreign bodies. Impression: Right hip replacement Electronically signed by Ilan Juárez 02-12-2025 6:56 PM
[2025-02-12] MEDS: SODIUM CHLORIDE 0.9% 1,000 ML IV SCH (19:39)
[2025-02-12] MEDS: DOCUSATE SODIUM 100 MG CAP PO SCH (21:21)
[2025-02-12] MEDS: SENNA 8.6 MG TAB PO SCH (21:22)
--- NOTE | 2025-02-12 23:40 | Hospitalist Progress Note ---
Date of Service February 12, 2025 Assessment & Plan (1) Subcapital fracture of right femur: (2) Hyperlipidemia: (3) Anxiety: (4) Depression: Plan 74 year old female with PMH significant for HTN, HLD, nicotine dependency, hypothyroidism, and depression/anxiety presents s/p mechanical fall with c/o right groin pain arriving via EMS to [facility]. ED course revealed 2V right hip XRAY with impaction type fracture deformity right subcapital femoral neck/slight atypical appearance of left femoral neck-->she denies pain in left hip as she states she fractured the left hip years ago where she did not seek immediate treatment post a fall and finally had an xray that revealed a fracture that had already healed. Right hip CT with right femoral subcapital neck fracture. CBC with leukocytosis at 16.53 with negative ROS. Chest xray with no acute findings. Reports SPO2 in high 80s post Morphine dosing she received in the ED. Placed on nasal cannula with favorable O2 saturations in the mid 90s. Tolerated Dilaudid 0.5mg IV times one ordered in ED without desaturation. ##Subcapital fracture of right femur-s/p ground level/mechanical fall with noted R hip CT revealing subcapital right femoral neck fracture with impaction -admit to med/surg -regular diet this evening, NPO after MN -orthopedic consult -pain control-->>IV Tylenol PRN, IV Dilaudid PRN, Oxycodone po PRN s/p hip repair ##leukocytosis in setting of traumatic fall, patient with daily nicotine use -ROS of negative -CXR without acute findings ##HTN -hold home amlodipine, losartan in setting of possible surgery ##HLD -on home statin, ##Depression/anxiety -Celexa 20mg po daily ##hypothroidism -check TSH -levothyroxine 88mcg po daily ##nicotine dependency -nicotine patch DVT prophylaxis: defer chemical therapy d/t possible surgical intervention, SCDs; will start tomorrow Diet: Regular, Disposition: Full admit CODE STATUS: Full code Admission and Anticipated Discharge Date Admission Date: February 11, 2025 Subjective Patient is resting after surgery. No new complaints. Pain is controlled. Physical Exam Constitutional: WD/WN, vitals as above Neck: trachea midline, no thyromegaly Respiratory: normal respiratory effort, lungs clear to auscultation Cardiovascular: RRR, no murmur, no edema Results & Data Results & Data Vital Signs (Past 12 Hours) Vital Signs Temp Pulse Pulse Pulse Resp BP BP 02/12/25 21:50 36.8 C 71 18 119/74 02/12/25 20:36 36.8 C 74 18 131/78 02/12/25 19:30 36.8 C 70 18 130/70 02/12/25 19:00 36.8 C 77 18 104/60 02/12/25 18:35 36.7 C 78 16 135/66 02/12/25 18:15 36.7 C 79 16 143/69 H 02/12/25 18:05 70 16 121/82 02/12/25 17:55 73 16 155/80 H 02/12/25 17:45 75 18 159/88 H 02/12/25 17:35 77 16 152/83 H 02/12/25 17:28 36.1 C L 82 18 163/93 H 02/12/25 13:26 36.8 C 77 20 153/83 H Pulse Ox O2 Del Method O2 Flow Rate 02/12/25 21:50 98 Nasal Cannula 2 02/12/25 20:36 97 Room Air 02/12/25 19:30 98 Nasal Cannula 2 02/12/25 19:00 96 Nasal Cannula 2 02/12/25 18:35 95 Nasal Cannula 2 02/12/25 18:15 95 Nasal Cannula 2 02/12/25 18:05 99 Oxymask 4 02/12/25 17:55 99 Oxymask 4 02/12/25 17:45 97 Oxymask 4 02/12/25 17:35 98 Oxymask 4 02/12/25 17:28 99 Oxymask 6 02/12/25 13:26 94 Room Air PG Care Time/CCT Total # of Minutes Spent Total Time Spent with Patient: Total time spent is greater than 50% in coordination of care (as documented) at patient's floor/unit and/or counseling patient: Coding Level of Care Code 23174 SUB INP/OBS CARE 2MIN Diagnoses Subcapital fracture of right femur S72.011A Hyperlipidemia E78.5 Anxiety F41.9 Depression F32.A
[2025-02-13] MEDS ORDERED: LEVOTHYROXINE SODIUM 88 MCG TABLET PO SCH (06:30)
[2025-02-13 07:59] LABS: Hematocrit (blood only) 32.8 % (37.0-47.0); Hemoglobin 11.3 g/dL (12.0-16.0); Immature Granulocytes # (auto) 0.06 K/uL (0.01-0.20); Immature Granulocytes % (auto) 0.4 %; Mean Corpuscular Hemoglobin 31.9 pg (25.0-34.0); Mean Corpuscular Volume 92.7 fL (80.0-100.0); Platelet Count 243 K/uL (130-400); RDW Standard Deviation 42.0 fL (36.4-46.3); Red Blood Count 3.54 M/uL (4.20-5.40); White Blood Count 14.76 K/ul (4.8-10.8)
[2025-02-13] MEDS: MULTIVITAMIN TAB PO SCH (08:06)
[2025-02-13] MEDS: dexAMETHasone 10 MG in SYRINGE 0 ML IV SCH (08:07)
[2025-02-13] MEDS: LOSARTAN POTASSIUM 50 MG TAB PO SCH (08:07)
[2025-02-13] MEDS: ATORVASTATIN 10 MG TAB PO SCH (08:08)
[2025-02-13 08:17] LABS: Anion Gap 7.0 (3-11); Blood Urea Nitrogen 15.0 mg/dl (6-23); Calcium 8.6 mg/dl (8.6-10.3); Carbon Dioxide 25.0 mmol/L (21-32); Chloride 103.0 mmol/L (98-107); Creatinine Clr Calc Pharmacy 77.2 ml/min; Glucose 121.0 mg/dl (70-99(Fasting)); Potassium 4.1 mmol/L (3.5-5.1); Sodium 135.0 mmol/L (136-145)
[2025-02-13] MEDS ORDERED: CITALOPRAM 20 MG TAB PO SCH (09:00)
--- NOTE | 2025-02-13 09:22 | Orthopedic Progress Note ---
Date of Service February 13, 2025 Assessment & Plan (1) S/P total hip arthroplasty: Plan: Total hip precautions reviewed Weightbearing as tolerated with walker assistance PT/OT Ice with easy wrap Abduction pillow use x 6 weeks Keep Silverlon dressing in place until follow-up DVT prophylaxis with aspirin twice daily and HILDA stockings Pain control with oxycodone 5 m tablets every 4-6 hours as needed for pain control and diclofenac sodium 75 m tablet twice daily for 30 days postoperatively with a refill. Orthopedically patient is stable for discharge. I feel that she can go home with in-home physical therapy for the first 2 weeks before transitioning to outpatient physical therapy. Follow-up with [facility] orthopedics in 2 weeks With questions contact our clinic at [phone] Admission and Anticipated Discharge Date Admission Date: February 11, 2025 Subjective This 74-year-old female is day 1 status post right total hip arthroplasty for subcapital femoral neck fracture. Patient states she is doing very well. She states that her pain is well-controlled with the p.o. pain medication. She is hoping to be able to go home and do in-home physical therapy for the first 2 weeks. Currently she denies chest pain, shortness of breath, fever, chills, sweats, nausea, vomiting, diarrhea or numbness or tingling in her right lower extremity. She still has a urinary catheter in place. Review of Systems Review of Systems: All systems reviewed & are unremarkable except as noted in Subjective Physical Exam Physical Exam: Right hip: Patient is able to perform an active straight leg raise test. She is able to actively dorsi and plantarflex her foot. She has no discomfort with logroll testing. She tolerates passive hip flexion to 80 degrees and experiences no discomfort with light passive internal or external hip rotation. Her quad strength is 4 out of 5. She does have a visible valgus malalignment of her knee joint. Patient is neurovascularly intact in the right lower extremity. Silverlon is clean dry and intact left in place after removing the outer dressing. Results & Data Vital Signs (Past 12 Hours) Vital Signs Temp Pulse Resp BP BP Pulse Ox O2 Del Method 02/13/25 07:24 36.9 C 78 18 152/81 H 97 Nasal Cannula 02/13/25 02:57 36.6 C 65 18 160/80 H 173/79 H 98 Nasal Cannula 02/12/25 21:50 36.8 C 71 18 119/74 98 Nasal Cannula 02/12/25 21:20 Nasal Cannula O2 Flow Rate 02/13/25 07:24 2 02/13/25 02:57 2 02/12/25 21:50 2 02/12/25 21:20 2 Diagnostic Findings Laboratory Results WBC 14.76 K/ul (4.8-10.8) H 02/13/25 07:32 RBC 3.54 M/uL (4.20-5.40) L 02/13/25 07:32 Hgb 11.3 g/dL (12.0-16.0) L 02/13/25 07:32 Hct 32.8 % (37.0-47.0) L 02/13/25 07:32 MCV 92.7 fL (80.0-100.0) 02/13/25 07:32 MCH 31.9 pg (25.0-34.0) 02/13/25 07:32 MCHC 34.5 g/dL (32.0-36.0) 02/13/25 07:32 RDW Std Deviation 42.0 fL (36.4-46.3) 02/13/25 07:32 RDW Coeff of Renetta 12.1 % (11.5-14.5) 02/13/25 07:32 Plt Count 243 K/uL (130-400) 02/13/25 07:32 MPV 9.1 fL (9.4-12.4) L 02/13/25 07:32 Immature Gran % (Auto) 0.4 % 02/13/25 07:32 Neut % (Auto) 78.4 % 02/13/25 07:32 Lymph % (Auto) 11.2 % 02/13/25 07:32 Ellis % (Auto) 9.8 % 02/13/25 07:32 Eos % (Auto) 0.1 % 02/13/25 07:32 Baso % (Auto) 0.1 % 02/13/25 07:32 Neut # (Auto) 11.56 K/uL (1.40-6.50) H 02/13/25 07:32 Lymph # (Auto) 1.66 K/uL (1.20-3.40) 02/13/25 07:32 Ellis # (Auto) 1.44 K/uL (0.11-0.59) H 02/13/25 07:32 Eos # (Auto) 0.02 K/uL (0.00-0.50) 02/13/25 07:32 Baso # (Auto) 0.02 K/uL (0.00-0.20) 02/13/25 07:32 Immature Gran # (Auto) 0.06 K/uL (0.01-0.20) 02/13/25 07:32 PT 11.3 Seconds (9.0-12.0) 02/11/25 14:00 INR 1.1 (0.9-1.1) 02/11/25 14:00 APTT 29 Seconds (21-31) 02/11/25 14:00 PTT Ratio 1.1 02/11/25 14:00 Sodium 135 mmol/L (136-145) L 02/13/25 07:32 Potassium 4.1 mmol/L (3.5-5.1) 02/13/25 07:32 Chloride 103 mmol/L (98-107) 02/13/25 07:32 Carbon Dioxide 25 mmol/L (21-32) 02/13/25 07:32 Anion Gap 7 (3-11) 02/13/25 07:32 BUN 15 mg/dl (6-23) 02/13/25 07:32 Creatinine 0.69 mg/dl (0.6-1.2) 02/13/25 07:32 Est Cr Clr Drug Dosing 77.2 ml/min 02/13/25 07:32 eGFR 92.15 02/13/25 07:32 BUN/Creatinine Ratio 21.7 (10-20) H 02/13/25 07:32 Glucose 121 mg/dl (70-99(Fasting)) H 02/13/25 07:32 Calcium 8.6 mg/dl (8.6-10.3) 02/13/25 07:32 Total Bilirubin 0.4 mg/dl (0.2-1.0) 02/11/25 14:00 AST 18 U/L (13-39) 02/11/25 14:00 ALT 12 U/L (7-52) 02/11/25 14:00 Alkaline Phosphatase 78 U/L (34-104) 02/11/25 14:00 Total Protein 7.2 gm/dl (6.0-8.3) 02/11/25 14:00 Albumin 3.9 gm/dl (3.4-5.0) 02/11/25 14:00 Globulin 3.3 gm/dl (2.5-4.0) 02/11/25 14:00 Albumin/Globulin Ratio 1.2 (0.9-2) 02/11/25 14:00 Procalcitonin 0.03 ng/ml (0-0.5) 02/12/25 07:39 TSH 4.045 uIu/ml (0.300-4.500) 02/12/25 07:39 Urine Color Dark Yellow 02/11/25 21: Urine Appearance Turbid (Clear) A 02/11/25 21:55 Urine pH 5.5 (4.5-7.5) 02/11/25 21:55 Ur Specific Burkett 1.029 (1.000-1.030) 02/11/25 21:55 Urine Protein Trace (Negative) H 02/11/25 21:55 Urine Glucose (UA) Negative (Negative) 02/11/25 21:55 Urine Ketones Trace (Negative) H 02/11/25 21:55 Urine Blood 2+ (Negative) H 02/11/25 21: Urine Nitrite Negative (Negative) 02/11/25 21: Urine Bilirubin Negative (Negative) 02/11/25 21:55 Urine Urobilinogen Negative (Negative) 02/11/25 21:55 Ur Leukocyte Esterase Trace (Negative) H 02/11/25 21:55 Urine WBC (Auto) 11-20 /hpf (0-5) H 02/11/25 21:55 Urine RBC (Auto) >20 /hpf (0-2) H 02/11/25 21:55 U Hyaline Cast (Auto) 0-2 /lpf (0-2) 02/11/25 21:55 U Epithel Cells (Auto) 3-5 /hpf (0-2) H 02/11/25 21:55 Urine Bacteria (Auto) 3+ (None Seen) H 02/11/25 21:55 Hyaline Casts Present /lpf (None Presnt) A 02/11/25 21:55 Urine Mucus Present (None Prsent) A 02/11/25 21:55 Urine Comment 02/11/25 21:55 Blood Type AB Positive 02/12/25 08:41 Blood Type Recheck AB Positive 02/12/25 07:39 Antibody Screen NEGATIVE 02/12/25 08:41 Impressions Hip/Pelvis X-Ray 02/11/25 14:23 Exam: Single view pelvis 2 view right hip. History: Pain post fall. Comparison:None. Findings: Slight atypical appearance of the left femoral neck. No discrete fracture. This may be positional. Mild degenerative changes lumbar spine. Transitional lumbosacral junction on the left. Absence normal cortical continuity of the subcapital right femoral neck most consistent with impaction type fracture deformity. Hip joint is intact. Impression: 1. Impaction type fracture deformity right subcapital femoral neck. CT would be helpful for further characterization. 2. Slight atypical appearance left femoral neck. Suspect chronic process. If pain at this level exist recommend dedicated left hip views. Please see above for details. Electronically signed by Jaden Mondragon 02-11-2025 2:[address] 02/11/25 15:11 CT right hip without contrast History: Pain/weakness Comparison: None Technique: CT performed of the extremity without IV contrast. Dose reduction techniques were achieved by using automatic exposure control and/or adjustment of mA and/or kV according to patient size and/or use of iterative reconstruction technique. Findings: Subcapital right femoral neck fracture with impaction. Avulsed bony fragments are seen inferior to the femoral head. The right hip joint is congruent. Portions visualized of the right iliac bone appear intact. Joint spaces are normally aligned. No visualized soft tissue abnormality. No aggressive osseous lesion. Impression: Right femoral subcapital neck fracture Electronically signed by Rolan Castillo 02-11-2025 4:09 PM Chest X-Ray 02/11/25 15:12 Chest radiograph, one view History: Preop Comparison: None Findings: Single AP view of the chest performed. No focal consolidation or pleural effusion. No pneumothorax. The cardiomediastinal silhouette is within normal limits. Normal pulmonary vascularity. No evidence for lymphadenopathy. No visualized bony or soft tissue abnormality. Impression: Normal chest radiograph Electronically signed by Rolan Castillo 02-11-2025 4:09 PM Pelvis X-Ray 02/12/25 17:30 One view of the pelvis is submitted for review. Findings: No fracture is seen. There is a right hip total arthroplasty. No other osseous abnormality is identified. There are no radiopaque foreign bodies. Impression: Right hip replacement Electronically signed by Ilan Juárez 02-12-2025 6:56 PM
[2025-02-13] MEDS: KETOROLAC TROMETHAMINE 15 MG/ML VIAL IV SCH (11:52)
[2025-02-13] MEDS: ENOXAPARIN INJ 40 MG/0.4 ML SYR SQ SCH (17:35)
--- NOTE | 2025-02-13 21:12 | Hospitalist Progress Note ---
Date of Service February 13, 2025 Assessment & Plan (1) Subcapital fracture of right femur: (2) Hyperlipidemia: (3) Anxiety: (4) Depression: Plan 74 year old female with PMH significant for HTN, HLD, nicotine dependency, hypothyroidism, and depression/anxiety presents s/p mechanical fall with c/o right groin pain arriving via EMS to [facility]. ED course revealed 2V right hip XRAY with impaction type fracture deformity right subcapital femoral neck/slight atypical appearance of left femoral neck-->she denies pain in left hip as she states she fractured the left hip years ago where she did not seek immediate treatment post a fall and finally had an xray that revealed a fracture that had already healed. Right hip CT with right femoral subcapital neck fracture. CBC with leukocytosis at 16.53 with negative ROS. Chest xray with no acute findings. Reports SPO2 in high 80s post Morphine dosing she received in the ED. Placed on nasal cannula with favorable O2 saturations in the mid 90s. Tolerated Dilaudid 0.5mg IV times one ordered in ED without desaturation. ##Subcapital fracture of right femur-s/p ground level/mechanical fall with noted R hip CT revealing subcapital right femoral neck fracture with impaction -admit to med/surg -regular diet this evening, NPO after MN -orthopedic consult -pain control-->>IV Tylenol PRN, IV Dilaudid PRN, Oxycodone po PRN s/p hip repair PT/OT evals: home health -If patient continues to do well tomorrow, plan will be to discharge. ##leukocytosis in setting of traumatic fall, patient with daily nicotine use -ROS of negative -CXR without acute findings ##HTN -resume home amlodipine, losartan in setting of possible surgery ##HLD -on home statin, ##Depression/anxiety -Celexa 20mg po daily ##hypothroidism -check TSH -levothyroxine 88mcg po daily ##nicotine dependency -nicotine patch DVT prophylaxis: defer chemical therapy d/t possible surgical intervention, SCDs; will start tomorrow Diet: Regular, Disposition: Full admit CODE STATUS: Full code Admission and Anticipated Discharge Date Admission Date: February 11, 2025 Subjective Patient reports feeling well after surgery. Patient has no new complaints. Physical Exam Constitutional: WD/WN, vitals as above Neck: trachea midline, no thyromegaly Respiratory: normal respiratory effort, lungs clear to auscultation Cardiovascular: RRR, no murmur, no edema Results & Data Results & Data Vital Signs (Past 12 Hours) Vital Signs Temp Pulse Resp BP Pulse Ox O2 Del Method 02/13/25 15:37 36.9 C 73 18 166/78 H 94 Room Air 02/13/25 11:00 37.5 C 74 18 129/72 93 Room Air PG Care Time/CCT Total # of Minutes Spent Total Time Spent with Patient: Total time spent is greater than 50% in coordination of care (as documented) at patient's floor/unit and/or counseling patient: Coding Level of Care Code 69979 SUB INP/OBS CARE MIN Diagnoses Subcapital fracture of right femur S72.011A Hyperlipidemia E78.5 Anxiety F41.9 Depression F32.A
[2025-02-14 07:42] LABS: Hematocrit (blood only) 32.8 % (37.0-47.0); Hemoglobin 11.3 g/dL (12.0-16.0); Mean Corpuscular Hemoglobin 31.7 pg (25.0-34.0); Mean Corpuscular Volume 92.1 fL (80.0-100.0); Platelet Count 238 K/uL (130-400); RDW Standard Deviation 42.4 fL (36.4-46.3); Red Blood Count 3.56 M/uL (4.20-5.40); White Blood Count 13.70 K/ul (4.8-10.8)
[2025-02-14 08:03] LABS: Anion Gap 8.0 (3-11); Blood Urea Nitrogen 18.0 mg/dl (6-23); Calcium 8.7 mg/dl (8.6-10.3); Carbon Dioxide 26.0 mmol/L (21-32); Chloride 104.0 mmol/L (98-107); Creatinine Clr Calc Pharmacy 71.1 ml/min; Glucose 97.0 mg/dl (70-99(Fasting)); Potassium 3.8 mmol/L (3.5-5.1); Sodium 138.0 mmol/L (136-145)
--- NOTE | 2025-02-14 09:59 | Orthopedic Progress Note ---
Date of Service February 14, 2025 Assessment & Plan (1) S/P total hip arthroplasty: Plan: POD 2 s/p right total hip arthroplasty with Dr Up Total hip precautions reviewed Weightbearing as tolerated with walker assistance PT/OT Ice with easy wrap Abduction pillow use x 6 weeks Keep Silverlon dressing in place until follow-up DVT prophylaxis with aspirin twice daily and HILDA stockings Pain control with oxycodone 5 m tablets every 4-6 hours as needed for pain control and diclofenac sodium 75 m tablet twice daily for 30 days postoperatively with a refill. Patient is going home today with home health and physical therapy. Follow-up with [facility] orthopedics in 2 weeks as scheduled With questions contact our clinic at [phone] Admission and Anticipated Discharge Date Admission Date: February 11, 2025 Sheyla Delaney is postop day 2 status post right total hip arthroplasty. She reports that she is overall doing well. She is having pain. She is able to ambulate with the walker to the bathroom. She denies any numbness or tingling. Review of Systems Review of Systems: Denies F/C, N/V, CP, SOB Physical Exam Physical Exam: General: Pt laying in hospital bed AA&O, in NAD, calm and cooperative during exam Lower Extremity: Dressing in tact and not saturated. Abduction pillow is in place. Pt has full ROM of ankle and all 5 digits. Pt has 4/5 strength with resisted DF/PF. Thigh soft and compressible. Calf supple and non tender. NVI with sensation to light touch distally Results & Data Vital Signs (Past 12 Hours) Vital Signs Temp Pulse Pulse Resp BP Pulse Ox O2 Del Method 02/14/25 07:58 36.9 C 67 14 133/73 92 Room Air 02/13/25 22:34 36.7 C 69 16 144/77 H 95 Room Air Laboratory Results 02/14/25 Range/Units 07:07 WBC 13.70 H (4.8-10.8) K/ul RBC 3.56 L (4.20-5.40) M/uL Hgb 11.3 L (12.0-16.0) g/dL Hct 32.8 L (37.0-47.0) % MCV 92.1 (80.0-100.0) fL MCH 31.7 (25.0-34.0) pg MCHC 34.5 (32.0-36.0) g/dL RDW Std Deviation 42.4 (36.4-46.3) fL RDW Coeff of Renetta 12.6 (11.5-14.5) % Plt Count 238 (130-400) K/uL MPV 9.2 L (9.4-12.4) fL Sodium 138 (136-145) mmol/L Potassium 3.8 (3.5-5.1) mmol/L Chloride 104 (98-107) mmol/L Carbon Dioxide 26 (21-32) mmol/L Anion Gap 8 (3-11) BUN 18 (6-23) mg/dl Creatinine 0.75 (0.6-1.2) mg/dl Est Cr Clr Drug Dosing 71.1 ml/min eGFR 84.54 BUN/Creatinine Ratio 24.0 H (10-20) Glucose 97 (70-99(Fasting)) mg/dl Calcium 8.7 (8.6-10.3) mg/dl
[2025-02-14 14:09] VITALS: RESP 18
--- NOTE | 2025-02-14 14:38 | Hospitalist Progress Note ---
Date of Service February 14, 2025 Assessment & Plan (1) S/P total hip arthroplasty: (2) Subcapital fracture of right femur: (3) Nicotine use disorder: Plan In summary this is a 74-year-old female admitted to the [facility] after ground-level fall sustaining a right subcapital femoral fracture requiring surgical intervention on 02/12 without complication. The patient was anticipated for discharge on 02/14 however developed some symptomatic hypotension while working with physical therapy; they did receive a dose of Roxicodone approximately 30 minutes prior to this activity, though had no similar issues earlier during their hospitalization. Reevaluation of the patient's vital signs in the afternoon on 02/14 are without evidence of orthostatic hypotension nor persistent hypotension while at rest. After further discussion with the patient and their spouse, they request remaining hospitalized through 02/15 for continued observation prior to being discharged home with home health Admission and Anticipated Discharge Date Admission Date: February 11, 2025 Subjective Ms. Khan is a 74-year-old female whose active medical conditions include hypertension, hyperlipidemia, acquired hypothyroidism, nicotine use disorder with dependence among other chronic medical conditions who presented to the [facility] on 02/11 after ground-level fall resulting in a right subcapital femoral fracture. She underwent surgical correction on 02/12 without complication. No acute overnight events; during daylight hours, the patient was anticipated for discharge however when working with physical therapy developed some lightheadedness and felt flushed. Her blood pressure was found to be persistently low, resulting in delay of her discharge and reevaluation. At the time my initial evaluation, the patient was sitting in their hospital chair, without acute complaint or concerns; feeling well when resting however upon standing felt suddenly flushed. She does endorse some occasional discomfort from her surgical site but otherwise feels well. Review of Systems Review of Systems: Review of constitutional, cardiovascular, pulmonary, gastrointestinal, musculoskeletal systems was unremarkable except for pertinent positive and ne gative findings discussed above Physical Exam Physical Exam: General: Elderly female in no acute distress Vital Signs: Reviewed HEENT: Moist mucous membranes Pulmonary: Symmetric chest wall excursion without restriction; comfortable respirations Cardiovascular: Regular rate and rhythm without murmurs, rubs, or gallops; S1 and S2 normal; left radial pulse 2+; minimal lower extremity edema without asymmetry Musculoskeletal: Surgical site remains with dressing; was not removed during my evaluation Neurologic: Cranial nerves II through XII grossly intact; no discernible focal weakness nor paresthesia consistent with a central neurologic injury, some weakness of the right lower extremity noted secondary to discomfort from the recent surgery Results & Data Results & Data Vital Signs (Past 12 Hours) Vital Signs Temp Pulse Pulse Pulse Resp BP Pulse Ox 02/14/25 14:07 36.4 C L 70 18 96/57 L 97 02/14/25 11:57 68 88/51 L 02/14/25 11:23 36.9 C 79 69 67 14 133/73 92 02/14/25 07:58 36.9 C 67 14 133/73 92 O2 Del Method 02/14/25 14:07 Room Air 02/14/25 11:57 02/14/25 11:23 02/14/25 07:58 Room Air PG Care Time/CCT Total # of Minutes Spent Total Time Spent with Patient: Total time spent is greater than 50% in coordination of care (as documented) at patient's floor/unit and/or counseling patient: Coding Level of Care Code 10919 SUB INP/OBS CARE 04/22MIN Diagnoses Status post total replacement of right hip Z96.641 Laterality: right Closed subcapital fracture of right femur, initial encounter S72.011A Encounter type: initial encounter Fracture type: closed Nicotine use disorder F17.200 (1) S/P total hip arthroplasty Laterality: right Qualified Code(s): Z96.641 - Presence of right artificial hip joint (2) Subcapital fracture of right femur Encounter type: initial encounter Fracture type: closed Qualified Code(s): S72.011A - Unspecified intracapsular fracture of right femur, initial encounter for closed fracture
[2025-02-14 23:26] VITALS: TEMP 98.6
[2025-02-15 08:15] VITALS: BP 148/71; O2SAT 94
--- NOTE | 2025-02-15 10:11 | Orthopedic Progress Note ---
Date of Service February 15, 2025 Assessment & Plan (1) S/P total hip arthroplasty: Plan: The patient was seen in the hallway today. She is doing well. She is ambulating without difficulty. She has no complaints of lightheadedness or dizziness. She is cleared from an orthopedic standpoint to be discharged to home today. Home health is already been arranged. Pain prescription was sent yesterday. Continue aspirin twice daily at home for DVT prophylaxis. Follow-up in the office in roughly 10 days as scheduled. Admission and Anticipated Discharge Date Admission Date: February 11, 2025 Subjective This 74-year-old female is seen today in the hallway. She is now 3 days status post total hip arthroplasty. She was initially being discharged yesterday but had a near syncopal episode and some hypotension during therapy. She remained stable throughout the rest of the day and her vitals were normal both yesterday afternoon and last evening. Anticipate that she will be discharged to home today. She denies any chest pain or shortness of breath. She is still somewhat apprehensive about going home. No additional complaints. Physical Exam Physical Exam: General: Well-developed, well-nourished, elderly female, in no acute distress. Ambulating in the hallway today with her walker. Alert and oriented. Skin: Warm and dry with good turgor. Her dressings were checked yesterday and were unremarkable. They were not checked today. Musculoskeletal: The patient has intact motor function of both lower extremities. She is able to ambulate using her walker. She is using normal heel-toe foot strike and is taking good strides. Results & Data Vital Signs (Past 12 Hours) Vital Signs Temp Pulse Pulse Resp BP Pulse Ox O2 Del Method 02/15/25 08:09 37.0 C 73 18 148/71 H 94 Room Air 02/14/25 23:26 37.0 C 72 18 134/77 95 Room Air (1) S/P total hip arthroplasty Laterality: right Qualified Code(s): Z96.641 - Presence of right artificial hip joint
[2025-02-15 11:41] VITALS: PULSE 79
--- NOTE | 2025-02-16 14:26 | Discharge Summary ---
Discharge Summary Date of Service February 15, 2025 Principal Dx & Hospital Course #1 = Principal Diagnosis (1) S/P total hip arthroplasty: (2) Subcapital fracture of right femur: (3) Nicotine use disorder: Plan In summary this is a 74-year-old female admitted to the [facility] after ground-level fall sustaining a right subcapital femoral fracture requiring surgical intervention on 02/12 without complication. The patient was anticipated for discharge on 02/14 however developed some symptomatic hypotension while working with physical therapy; they did receive a dose of Roxicodone approximately 30 minutes prior to this activity, though had no similar issues earlier during their hospitalization. Reevaluation of the patient's vital signs in the afternoon on 02/14 are without evidence of orthostatic hypotension nor persistent hypotension while at rest. After further discussion with the patient and their spouse, they requested remaining hospitalized through 02/15 for continued observation prior to being discharged home with home health. There were no issues overnight, and they were discharged in a stable condition Admission HPI Per Admitting Provider Patient is a 74-year-old female with past medical history significant for hypertension, nicotine dependency, hypothyroidism, hyperlipidemia, and anxiety/depression that presented to the [facility] emergency department by ambulance status post mechanical/ground-level fall. States she was playing slot machines at local [employer] and was sitting on a barstool when she went to get up where her right knee twisted up and buckled on her subsequently causing her to fall backwards. She landed on her buttocks and had pain immediately in her right groin. Her had to get a rolling walker to take her to their private vehicle to get home. She then started having worsening right groin pain as she was sitting in her recliner at home. She medicated with Tylenol and this minimally helped her pain. She had no presyncope, syncope, visual disturbance, dizziness prior to fall. No complaints of headache, neck pain, cervical/thoracic/lumbar pain post fall. She is currently having pain in her right groin area rating pain 5/10. She does smoke cigarettes 1PPD, does not drink ETOH and has not drank today. After lengthy discussion with patient she elects to be a full code during her hospitalization. Discharge Exam General: Elderly female in no acute distress Vital Signs: Reviewed HEENT: Moist mucous membranes Pulmonary: Symmetric chest wall excursion without restriction; comfortable respirations Cardiovascular: Regular rate and rhythm without murmurs, rubs, or gallops; S1 and S2 normal; left radial pulse 2+; minimal lower extremity edema without asymmetry Musculoskeletal: Surgical site remains with dressing; was not removed during my evaluation Neurologic: Cranial nerves II through XII grossly intact; no discernible focal weakness nor paresthesia consistent with a central neurologic injury, some weakness of the right lower extremity noted secondary to discomfort from the recent surgery Discharge Plan Discharge Items Patient Disposition: Home - Home Health Services Reason For Visit: FALL Discharge Diagnosis: Subcapital fracture of right femur with right total hip arthroplasty Condition on Discharge: Good Activity: Per Instructions section Lifting: Wait until after follow-up appointment Bathing: Keep incision dry Sexual Activity: Wait until after follow-up appointment Exercise/Sports: Wait until after follow-up appointment Driving/Machine Use: No driving Weightbearing: Full weightbearing Non-emergency contact: Primary Care Provider and Surgeon Call non-emergency contact if: you have any medication questions, your pain is not controlled, your temperature is above 101, your wound has increased redness, your wound has increased drainage and your wound pain has increased Follow-up/Referrals: Jarrett Dodge PA-C [Physician Senior Erp Consultant] - 02/28/25 10:00 am Janee Guerrero CRNP [Primary Care Provider] - 02/19/25 2:00 pm Diet: Regular Fluids: 2000ml (8 cups) Kori Attending Provider Instructions: You were admitted to the [facility] after a ground level fall resulting in a right femoral head fracture requiring surgical intervention which occurred on 02/12 without subsequent complication. Your hospital stay was uncomplicated, and with the assistance of Orthopedic Surgery follow up in the outpatient setting has been established as well as home health services. Thank you for choosing [facility] as your provider. Addtl Meat Cutter Apprentice Provider Instructions: Total hip precautions Weightbearing as tolerated with walker assistance PT/OT, home PT for the first two weeks then can transition to out patient PT Ice with easy wrap Abduction pillow use x 6 weeks Keep Silverlon dressing in place until follow-up DVT prophylaxis with aspirin twice daily and HILDA stockings Pain control with oxycodone 5 m tablets every 4-6 hours as needed for pain control and diclofenac sodium 75 m tablet twice daily for 30 days p ostoperatively with a refill. Follow-up with [facility] in 2 weeks With questions contact our clinic at [phone] New Medicine: * You will likely be taking one or more of these medicines: 1. Oxycodone - Take, as directed, when you need it, every four to six hours to control your pain. 2. Iron Sulfate - Take 1x each day for the month after surgery to help you replace the blood lost during surgery. 3. Aspirin - Thins your blood to lessen the chance of forming a blood clot. * The most common side effects of pain medicine and iron are nausea and constipation. If nausea or constipation is too much of a problem or if you have any questions about your new medicines or doses, call [facility] at . We will try to help you manage these issues. "VERY IMPORTANT TO READ AND REVIEW" Pain: * The immediate post-operative period after hip replacement surgery is often quite painful. * You are given a prescription for pain medicine. You should take it, as directed, when you need it, especially before physical therapy and before going to bed. Pain that interferes with sleep is very common and can last several months. * You will likely need pain medicine for the first two to four weeks. It will not stop all of the pain. The pain will lessen and as you feel better, you may change to milder pain medicine such as Tylenol. * The most common side effects of pain medicine are nausea and constipation, so don't take more than you need. Physical Therapy: * Follow the "Hip Precautions Instructions." * In some cases, the social work administrator at the hospital will arrange to have a therapist come to your house for the first couple of weeks to help you learn these skills. * You need to practice on your own or with the help of a family member as needed. * When you learn these skills, most of the therapy can be done on your own. Home Exercise: * You were shown a series of exercises in the hospital. Do these exercises three to four times each day including the exercises you were shown in physical therapy. Walking: * Get up and walk several times each day. For the first four weeks, try not to stand or walk for more than one hour at a time. If you do stand or walk for more than one hour, you will not hurt anything, but your leg will likely swell. * As you feel comfortable, you may change from the walker or crutches to a cane and then to independent walking. SELF CARE INSTRUCTIONS AFTER TOTAL HIP REPLACEMENT Until the incision and soft tissues around your hip have healed, there is a possibility that the hip prosthesis could dislocate. A. Observe the following precautions to prevent dislocation: 1. Don't bend your hip greater than 90 degrees. 2. Avoid crossing your legs or ankles while standing or lying. 3. Sit with your feet placed 6 inches apart. 4. When sitting, keep your knees below your hips. Sit on a firm surface, avoid deep, soft chairs and couches. Use an elevated toilet seat in the bathroom. 5. Don't bend over at the waist. Use a long handled shoehorn and a sock aid to help you put on your shoes and socks. A solution engineer can help you pear picker objects that are too high or too low to reach. 6. Keep car riding to a minimum for at least one month after surgery. B. Your balance may be shaky for a while. Use crutches or a walker until directed by your doctor. C. Use hand rails when walking on stairs. D. Wear low heeled shoes with non-slip soles. E. Be sure that your floors are free of things that could trip you - throw rugs, electrical cords, small objects. Avoid wet and waxed floors, especially with crutches and canes. F. Try to walk several times a day with rest periods between. G. Continue with all the exercises taught to you in the hospital. Again, make walking a part of your daily routine. VERY IMPORTANT TO READ AND REVIEW A. Take Aspirin (blood thinning medication) as directed by your doctor. B. There are a few signs you need to watch for after you are home. If you no efra any of the followin. Increased severe hip pain. Some pain is expected especially when you exercise. 2. Increased swelling in your leg or knee; pain or swelling of the calf muscle in either lower leg. 3. Any fluid drainage from the incision. 4. Shortness of breath or chest pain. TEDs/Elastic Stockings: * The white elastic stockings help limit swelling and prevent blood clots from forming in your legs. The more you wear them, the more they work. * Wear them for 4 weeks. Prevention of Infection: * Take antibiotics one hour before any dental cleaning, dental work, urological procedure, gastrointestinal procedure or any invasive surgery in order to prevent your new joint from getting infected. * You may get the antibiotics from the doctor performing the procedure or we will call in a prescription to the pharmacy of your choice. Call the office for a prescription at least 2 days prior to your appointment. Diet: * You may return to previous diet. Things to Watch For: * Drainage from the incision site that occurs more than one week after your surgery. * Severely increased leg pain or swelling. * Increased redness at the incision site. * Fever above 101 degrees Fahrenheit. * Unusual chest pain or shortness of breath. * Unusual pain or burning with urination. Pending Studies at Discharge: No Stand-Alone Forms: [facility] [employer], Pain - Opioid Pain Management, Smoking Cessation Medications and DC Order Prescriptions: New oxycodone 5 mg Tablet 5 mg PO Q6H PRN (Reason: severe breakthrough pain) 5 Days Qty: 14 0RF bisacodyl 5 mg tablet 10 mg PO HS 14 Days Qty: 14 0RF Continued atorvastatin 10 mg tablet 10 mg PO DAILY amlodipine 5 mg tablet 5 mg PO DAILY citalopram 20 mg tablet 20 mg PO DAILY losartan 100 mg tablet 100 mg PO DAILY levothyroxine 88 mcg capsule 88 mcg PO DAILY Discharge Orders: Discharge Order (Routine); Ordered 02/15/25 Ordered By: Nick Leal/Other Patient Handouts: After Hip Replacement: Home Safety, Hip Replace Home Recovery, How Bones Heal, Prevention Guide Women 65 Plus Admission Data Admit Date/Time: 02/11/25 16:32 Attending Provider: Nick Mae Admit Provider: Nicola Jovel Primary Care Provider: Janee Guerrero Other Providers: [email or web address],Home Health; [employer],Home Healt; [facility],HOME HEALTH; [facility],Home [facility]; Malaika Severino; Jeet Shepherd Other Interventions: Discharge Summary Assessment (RN) Last Done: 02/15/25 11:41 Hospital Stay Data Consultations 02/11/25 15:41 ED Decision to Admit Stat Procedures Performed Operation Date: 02/12/25 07:50 Actual Procedures p Right Total Hip Arthroplasty(Right) - Jeet Shepherd MD Diagnostic Imagining Performed 02/11/25 15:11 CT hip RT wo con Stat Pending Results Patient Have Any Pending Studies at Discharge: No Discharge Instructions Given to Patient (Per Discharging Provider) You were admitted to the [facility] after a ground level fall resulting in a right femoral head fracture requiring surgical intervention which occurred on 02/12 without subsequent complication. Your hospital stay was uncomplicated, and with the assistance of Orthopedic Surgery follow up in the outpatient setting has been established as well as home health services. Thank you for choosing [facility] as your provider. Total Time Total Time Spent Total Time Spent (In Minutes): I personally spent 40 minutes in the coordination of this patient's discharge including bedside counseling, physical exam, medication reconciliation, and coordination of care with orthopedic surgery and case management Coding Level of Care Code 80574 INP/OBS DISCH >30 MIN Diagnoses Status post total replacement of right hip Z96.641 Laterality: right Closed subcapital fracture of right femur, initial encounter S72.011A Encounter type: initial encounter Fracture type: closed Nicotine use disorder F17.200 Home Health Attestation I certify that this patient is under my care and that I, or a physicians surgical assistant certified working with me, had a face to-face encounter that meets the home health [id number] encounter requirements with this patient. The encounter with the patient was in whole, or in part, for the following medical condition, which is the primary reason for home health care (list medical condition): right hip fracture I certify that, based on my findings, the following services are medically necessary home health services: My clinical findings support the need for the above services because: OT Assess ADL Status and Restore Function w ADLs Skilled Nsg to Assess, Perform and Teach Wound Care Further, I certify that my clinical findings support that this patient is homebound (i.e. absences from home require considerable and taxing effort and are for medical reasons or christian services or infrequently or of short duration when for other reasons) because: Transportation Assistance/Unable to Leave Home Unassisted Certification for Home Health Services: Based on the above findings, I certify that this patient is confined to the home and needs intermittent snf care, physical therapy and/or speech therapy or continues to need occupational therapy. The patient is under my care, and I have initiated the establishment of the plan of care. This patient will be followed by a physician who will periodically review the plan of care.
== END 2025-02-15 12:35 | disposition home health service (06) | DRG 522 ==
LOC: ED 13:45 → SUATTDRO 16:32 → 3N 16:32
DX: F41.9 Anxiety disorder, unspecified; I10 Essential (primary) hypertension; D72.829 Elevated white blood cell count, unspecified; W07.XXXA Fall from chair, initial encounter; S72.011A Unspecified intracapsular fracture of right femur, initial encounter for closed fracture; Y92.59 Other trade areas as the place of occurrence of the external cause; E78.5 Hyperlipidemia, unspecified; F32.A Depression, unspecified; E03.9 Hypothyroidism, unspecified; F17.210 Nicotine dependence, cigarettes, uncomplicated